=== PATIENT | male | born 1940 | race Caucasian/White ===

== ENCOUNTER 2018-02-10 08:48 | Day surgery (SDC) | payer MEDICARE, BC ==
[2018-02-09 10:45] LABS: BASOPHILS % (AUTO) 0.6 % (0-1); EOSINOPHILS # (AUTO) 0.1 X10'3 (0-0.9); EOSINOPHILS % (AUTO) 1.8 % (0-6); LYMPHOCYTES % (AUTO) 20.4 % (21-51); MEAN CORPUSCULAR HEMOGLOBIN 32.1 PG (27.0-31.0); MEAN CORPUSCULAR HGB CONC 34.9 % (33.0-36.5); MEAN CORPUSCULAR VOLUME 91.9 FL (78-98); MEAN PLATELET VOLUME 7.3 FL (7.4-10.4); MONOCYTES # (AUTO) 0.6 X10'3 (0-0.9); MONOCYTES % (AUTO) 12.6 % (2-12); NEUTROPHILS # (AUTO) 3.3 X10'3 (1.8-7.7); NEUTROPHILS % (AUTO) 64.6 % (42-75); PRE OP HEMOGLOBIN 14.3 g/dL (14.0-17.9); PRE OP PLATELET COUNT 215 X10'3 (140-440); RED BLOOD COUNT 4.46 X10'6 (4.70-6.10); RED CELL DISTRIBUTION WIDTH 13.4 % (11.5-14.5)
[2018-02-09 11:01] LABS: ALBUMIN 3.8 G/DL (3.4-5.0); ALBUMIN/GLOBULIN RATIO 1.3 (1.1-1.5); ALKALINE PHOSPHATASE 60 IU/L (46-116); BLOOD UREA NITROGEN 18 MG/DL (7-18); CALCIUM 9.4 MG/DL (8.5-10.1); CHLORIDE 102 MMOL/L (99-107); CREATININE 1.29 MG/DL (0.60-1.10); PRE OP ALT 39 U/L (30-65); PRE OP ANION GAP 11 (8-16); PRE OP AST 16 U/L (10-37); PRE OP BILIRUB, TOTAL 0.4 MG/DL (0.0-1.0); PRE OP GLUCOSE 132 MG/DL (70-104); PRE OP PARTIAL THROMB. TIME 26 SECONDS (22-35); PRE OP SODIUM 138 MMOL/L (135-145); TOTAL CARBON DIOXIDE 25.1 MMOL/L (24-32); TOTAL PROTEIN 6.7 G/DL (6.4-8.2); eGFR 54 ML/MIN
[2018-02-10] VITALS (9 sets, daily range): BP systolic 131–160; BP diastolic 62–91
[~2018-02-10] VITALS: Ht 182.9 cm; Wt 97.3 kg
[~2018-02-10 08:48] MED LIST: AMLO1TAB53 PO; ASCO500C15 PO; CHOL2000 PO; CYAN-19 PO; DICY10CA88 PO; FOLI1TAB16 PO; PANT-47 PO; UBID400C6 PO; VITAMIN B6 PO; cefazolin/dext.iso 2gm/100 ML IV ONE; famotidine 20mg tablet PO ONE; ringers solution, lacted 1,000 ML IV SCH
[2018-02-10] MEDS ORDERED: LIDOcaine 1% (10mg/ml) 2ml vial ONE (09:16)
[2018-02-10] MEDS ORDERED: BUPIVAcaine/PF 2.5mg/ml (0.25%) 10ml vial ONE (11:26)
[2018-02-10] MEDS ORDERED: LIDOcaine 0.5% (5mg/ml) 50ml vial ONE (11:29)
[2018-02-10] MEDS ORDERED: sevoflurane 250ml liquid IH ONE (11:41)
[2018-02-10] MEDS ORDERED: midazolam 2 mg/2 ml injection ONE ×2 (11:43→12:00)
[2018-02-10] MEDS ORDERED: fentaNYL/PF 50MCG/1 ML 2ML syringe ONE ×2 (11:43→12:00)
[2018-02-10] MEDS ORDERED: hydrALAZINE 20mg/ml inj. IV ONE (11:47)
[2018-02-10] MEDS ORDERED: ondansetron/PF 4mg/2ml inj ONE ×2 (12:17→12:25)
[2018-02-10] MEDS ORDERED: ringers solution, lacted 1,000 ML IV SCH (12:26)
[2018-02-10] MEDS ORDERED: morphine 4 MG/ML inj SYRINge IV PRN (12:30)
[2018-02-10] MEDS ORDERED: ondansetron/PF 4mg/2ml inj IV PRN (12:30)
== END 2018-02-10 13:20 | disposition home or self-care (01) ==
LOC: PAS 08:48
PROVIDERS: ATTEND Orthopaedic Surgery Hand Surgery
DX: M65.332 Trigger finger, left middle finger (principal); I10 Essential (primary) hypertension; K21.9 Gastro-esophageal reflux disease without esophagitis; N40.0 Benign prostatic hyperplasia without lower urinary tract symptoms; Z79.2 Long term (current) use of antibiotics; Z79.01 Long term (current) use of anticoagulants; Z87.891 Personal history of nicotine dependence; Z72.89 Other problems related to lifestyle; Z85.820 Personal history of malignant melanoma of skin; Z98.890 Other specified postprocedural states; Z79.899 Other long term (current) drug therapy; Z82.49 Family history of ischemic heart disease and other diseases of the circulatory system
CPT/HCPCS: 26055; 36415; 80053; 85025; 85610; 85730; 93005; A6222; A6449; J0360; J0690; J2001; J2250; J2405; J3010; J3490; J7120

== ENCOUNTER 2020-10-31 13:17 | Emergency (ER) | payer MEDICARE, BC ==
[~2020-10-31] VITALS: Ht 182.9 cm; Wt 88.2 kg
[~2020-10-31 13:17] MED LIST changes: +AMLO-363 PO; -AMLO1TAB53 PO; -ASCO500C15 PO; +ASCO500C18 PO; -CYAN-19 PO; +CYAN-51 PO; -cefazolin/dext.iso 2gm/100 ML IV ONE; -famotidine 20mg tablet PO ONE; -ringers solution, lacted 1,000 ML IV SCH
[2020-10-31 13:55] LABS: BASOPHILS # (AUTO) 0.1 X10'3 (0-0.2); BASOPHILS % (AUTO) 0.8 % (0-1); EOSINOPHILS # (AUTO) 0.1 X10'3 (0-0.9); EOSINOPHILS % (AUTO) 0.8 % (0-6); HEMOGLOBIN 14.2 g/dl (14.0-17.9); MEAN CORPUSCULAR HEMOGLOBIN 32.3 PG (27.0-31.0); MEAN CORPUSCULAR HGB CONC 35.4 g/dL (33.0-36.5); MEAN CORPUSCULAR VOLUME 91.2 FL (78-98); MEAN PLATELET VOLUME 7.8 FL (7.4-10.4); MONOCYTES # (AUTO) 0.6 X10'3 (0-0.9); MONOCYTES % (AUTO) 9.6 % (2-12); NEUTROPHILS # (AUTO) 4.7 X10'3 (1.8-7.7); NEUTROPHILS % (AUTO) 73.8 % (42-75); PLATELET COUNT 206 X10'3 (140-440); RED BLOOD COUNT 4.39 X10'6 (4.70-6.10); RED CELL DISTRIBUTION WIDTH 13.4 % (11.5-14.5); WHITE BLOOD COUNT 6.4 X10'3 (4.5-11.0)
[2020-10-31 14:11] LABS: ALANINE AMINOTRANSFERASE 32 U/L (12-78); ALBUMIN 4.2 G/DL (3.4-5.0); ALBUMIN/GLOBULIN RATIO 1.4 (1.1-1.5); ALKALINE PHOSPHATASE 95 IU/L (46-116); ANION GAP 12 (8-16); ASPARTATE AMINO TRANSFERASE 14 U/L (10-37); BILIRUBIN,TOTAL 0.5 MG/DL (0.1-1.0); BLOOD UREA NITROGEN 21 MG/DL (7-18); BUN/CREATININE RATIO 13.4 (5.4-32.0); CALCIUM 9.9 MG/DL (8.5-10.1); CHLORIDE 92 MMOL/L (99-107); CREATININE 1.57 MG/DL (0.60-1.10); POTASSIUM 4.1 MMOL/L (3.5-5.1); SODIUM 131 MMOL/L (135-145); TOTAL CARBON DIOXIDE 26.9 MMOL/L (24-32); TOTAL PROTEIN 7.2 G/DL (6.4-8.2); eGFR 43 ML/MIN
[2020-10-31 14:16] LABS: GLUCOSE 498 MG/DL (70-104)
[2020-10-31] MEDS ORDERED: normal saline 1000ML IV soln IVB ONE ×2 (14:25→16:00)
[2020-10-31] MEDS ORDERED: insulin regular, human 10 units/0.1 ml syringe IV ONE (15:50)
[2020-10-31 16:10] LABS: CLARITY,URINE CLEAR (Clear); COLOR,URINE YELLOW (Yellow); GLUCOSE, URINE >=1000 mg/dl (Neg); KETONES,URINE 15 mg/dl (Neg); LEUKOCYTE ESTERASE ,URINE NEGATIVE (Neg); NITRITES, URINE NEGATIVE (Neg); OCCULT BLOOD,URINE NEGATIVE (Neg); PROTEIN,URINE NEGATIVE (Neg); UROBILINOGEN,URINE 0.2 E.U/dL (0.2-1.0)
[2020-10-31 16:14] LABS: UA COLLECTION TYPE CLN CATCH MIDSTREAM
[2020-10-31 16:15] LABS: BACTERIA,URINE NONE SEEN /HPF (Neg); MUCUS STRANDS NONE SEEN /LPF (Neg); RBC,URINE 0-2 /HPF (0-2); SQUAMOUS EPITHELIAL CELL,UR NONE SEEN /LPF (FEW); WBC,URINE NONE SEEN /HPF (0-4)
[2020-10-31] MEDS ORDERED: AMLO10TA13 PO (17:07)
[2020-10-31] MEDS ORDERED: PYRI100T10 PO (17:07)
[2020-10-31] MEDS ORDERED: HYDR25TA4 PO (17:07)
[2020-10-31] MEDS ORDERED: VALS320T17 PO (17:07)
[2020-10-31] MEDS ORDERED: METF500T PO (17:48)
[2020-10-31 17:59] VITALS: BP 195/95
--- NOTE | 2020-10-31 17:59 | NUR ---
Per MD Jean, pt ok to discharge without finishing IV fluids.
== END 2020-10-31 18:22 | disposition home or self-care (01) ==
LOC: ER 13:17
DX: E11.65 Type 2 diabetes mellitus with hyperglycemia (principal); I10 Essential (primary) hypertension; R53.83 Other fatigue; R53.1 Weakness; Z72.89 Other problems related to lifestyle; Z79.899 Other long term (current) drug therapy
CPT/HCPCS: 36415; 80053; 81001; 82948; 85025; 96374; 99283; J7030

== ENCOUNTER → 2021-02-27 | Outpatient (CLI) | payer MEDICARE, BC ==
[~2021-02-27] MED LIST changes: -AMLO-363 PO; +AMLO10TA PO; +ASPI-611 PO; +ASPI81TA52 PO; +DAPA5TAB PO; -FOLI1TAB16 PO; +HYDR25TA4 PO; +IODIXANOL 320 MG/ML INFUS..BTL 100ML IV ONE; +IODIXANOL 320 MG/ML INFUS..BTL 50ML IV ONE; +METF-1203 PO; +METF-900 PO; +PYRI100T10 PO; +ROSU5TAB PO; +TICA90TA PO; +TICA90TA2 PO; -UBID400C6 PO; +VALS160T2 PO; -VITAMIN B6 PO
[2021-02-27 11:32] LABS: BASOPHILS # (AUTO) 0.1 X10'3 (0-0.2); BASOPHILS % (AUTO) 0.8 % (0-1); EOSINOPHILS # (AUTO) 0.1 X10'3 (0-0.9); EOSINOPHILS % (AUTO) 0.9 % (0-6); HEMATOCRIT 37.1 % (42.0-52.0); HEMOGLOBIN 12.7 g/dl (14.0-17.9); LYMPHOCYTES # (AUTO) 0.9 X10'3 (1.1-4.8); LYMPHOCYTES % (AUTO) 13.4 % (21-51); MEAN CORPUSCULAR HEMOGLOBIN 31.2 PG (27.0-31.0); MEAN CORPUSCULAR HGB CONC 34.2 g/dL (33.0-36.5); MEAN CORPUSCULAR VOLUME 91.1 FL (78-98); MEAN PLATELET VOLUME 6.7 FL (7.4-10.4); MONOCYTES # (AUTO) 0.7 X10'3 (0-0.9); MONOCYTES % (AUTO) 9.9 % (2-12); PLATELET COUNT 417 X10'3 (140-440); RED BLOOD COUNT 4.07 X10'6 (4.70-6.10); RED CELL DISTRIBUTION WIDTH 13.9 % (11.5-14.5); WHITE BLOOD COUNT 6.7 X10'3 (4.5-11.0)
[2021-02-27 12:00] LABS: PARTIAL THROMBOPLASTIN TIME 27 SECONDS (22-32)
[2021-02-27 12:14] LABS: ALANINE AMINOTRANSFERASE 43 U/L (12-78); ALBUMIN 3.9 G/DL (3.4-5.0); ALBUMIN/GLOBULIN RATIO 1.1 (1.1-1.5); ALKALINE PHOSPHATASE 70 IU/L (46-116); ANION GAP 9 (8-16); ASPARTATE AMINO TRANSFERASE 14 U/L (10-37); BILIRUBIN,TOTAL 0.5 MG/DL (0.1-1.0); BLOOD UREA NITROGEN 23 MG/DL (7-18); BUN/CREATININE RATIO 18.4 (5.4-32.0); CALCIUM 9.7 MG/DL (8.5-10.1); CHLORIDE 103 MMOL/L (99-107); CREATININE 1.25 MG/DL (0.60-1.10); GLUCOSE 131 MG/DL (70-104); SODIUM 138 MMOL/L (135-145); TOTAL CARBON DIOXIDE 26.3 MMOL/L (24-32); TOTAL PROTEIN 7.4 G/DL (6.4-8.2); eGFR 56 ML/MIN
== END | disposition home or self-care (01) ==
LOC: RAD 10:25
PROVIDERS: ATTEND Internal Medicine Cardiovascular Disease
DX: K57.30 Diverticulosis of large intestine without perforation or abscess without bleeding (principal); M43.16 Spondylolisthesis, lumbar region; M51.37 Other intervertebral disc degeneration, lumbosacral region; N20.0 Calculus of kidney; N28.1 Cyst of kidney, acquired; K76.89 Other specified diseases of liver; I70.0 Atherosclerosis of aorta; I70.1 Atherosclerosis of renal artery; I25.10 Atherosclerotic heart disease of native coronary artery without angina pectoris; I70.8 Atherosclerosis of other arteries; K55.1 Chronic vascular disorders of intestine; M47.815 Spondylosis without myelopathy or radiculopathy, thoracolumbar region; M85.88 Other specified disorders of bone density and structure, other site; Z20.822 Contact with and (suspected) exposure to COVID-19
CPT/HCPCS: 36415; 71046; 71275; 74174; 80053; 85025; 85610; 85730; 94010; 94727; 94729; Q9967; U0003

== ENCOUNTER 2021-04-02 08:30 | Inpatient (IN) | payer MEDICARE, BC ==
[2021-03-27 15:43] LABS: CLARITY,URINE CLEAR (Clear); COLOR,URINE YELLOW (Yellow); UA COLLECTION TYPE CLN CATCH MIDSTREAM
[2021-03-27 15:44] LABS: GLUCOSE, URINE >=1000 mg/dl (Neg); KETONES,URINE NEGATIVE (Neg); LEUKOCYTE ESTERASE ,URINE NEGATIVE (Neg); NITRITES, URINE NEGATIVE (Neg); OCCULT BLOOD,URINE NEGATIVE (Neg); PROTEIN,URINE NEGATIVE (Neg); UROBILINOGEN,URINE 0.2 E.U/dL (0.2-1.0)
[2021-03-27 15:47] LABS: BASOPHILS # (AUTO) 0.1 X10'3 (0-0.2); BASOPHILS % (AUTO) 0.9 % (0-1); EOSINOPHILS # (AUTO) 0.1 X10'3 (0-0.9); EOSINOPHILS % (AUTO) 1.6 % (0-6); LYMPHOCYTES # (AUTO) 0.8 X10'3 (1.1-4.8); LYMPHOCYTES % (AUTO) 13.1 % (21-51); MEAN CORPUSCULAR HEMOGLOBIN 30.4 PG (27.0-31.0); MEAN CORPUSCULAR VOLUME 89.4 FL (78-98); MEAN PLATELET VOLUME 7.1 FL (7.4-10.4); MONOCYTES # (AUTO) 0.6 X10'3 (0-0.9); MONOCYTES % (AUTO) 10.3 % (2-12); NEUTROPHILS # (AUTO) 4.6 X10'3 (1.8-7.7); NEUTROPHILS % (AUTO) 74.1 % (42-75); PRE OP HEMATOCRIT 37.8 % (42.0-52.0); PRE OP HEMOGLOBIN 12.9 g/dL (14.0-17.9); PRE OP PLATELET COUNT 248 X10'3 (140-440); RED BLOOD COUNT 4.23 X10'6 (4.70-6.10); RED CELL DISTRIBUTION WIDTH 14.1 % (11.5-14.5)
[2021-03-27 15:52] LABS: BACTERIA,URINE NONE SEEN /HPF (Neg); MUCUS STRANDS NONE SEEN /LPF (Neg); RBC,URINE 0-2 /HPF (0-2); SQUAMOUS EPITHELIAL CELL,UR NONE SEEN /LPF (FEW); WBC,URINE NONE SEEN /HPF (0-4)
[2021-03-27 15:55] LABS: PRE OP PROTIME 10.3 SECONDS (9.0-12.0)
[2021-03-27 15:57] LABS: ALBUMIN/GLOBULIN RATIO 1.3 (1.1-1.5); ALKALINE PHOSPHATASE 64 IU/L (46-116); BLOOD UREA NITROGEN 20 MG/DL (7-18); BUN/CREATININE RATIO 16.9 (5.4-32.0); CALCIUM 8.9 MG/DL (8.5-10.1); CHLORIDE 101 MMOL/L (99-107); CREATININE 1.18 MG/DL (0.60-1.10); PRE OP ALT 40 U/L (30-65); PRE OP ANION GAP 8 (8-16); PRE OP AST 16 U/L (10-37); PRE OP BILIRUB, TOTAL 0.3 MG/DL (0.0-1.0); PRE OP GLUCOSE 119 MG/DL (70-104); PRE OP POTASSIUM 3.7 MMOL/L (3.4-5.1); PRE OP SODIUM 136 MMOL/L (135-145); TOTAL CARBON DIOXIDE 27.3 MMOL/L (24-32); TOTAL PROTEIN 7.1 G/DL (6.4-8.2); eGFR 60 ML/MIN
[2021-03-27 16:01] LABS: HEMOGLOBIN A1C 5.6 % (4.5-6.2)
[~2021-04-02] VITALS: Ht 177.8 cm; Wt 85.0 kg
[~2021-04-02 08:30] MED LIST changes: -ASPI-611 PO; -ASPI81TA52 PO; -IODIXANOL 320 MG/ML INFUS..BTL 100ML IV ONE; -IODIXANOL 320 MG/ML INFUS..BTL 50ML IV ONE; -METF-1203 PO; -TICA90TA PO; -TICA90TA2 PO
[2021-04-13 12:17] LABS: BASOPHILS % (AUTO) 0.6 % (0-1); EOSINOPHILS # (AUTO) 0.1 X10'3 (0-0.9); EOSINOPHILS % (AUTO) 1.3 % (0-6); LYMPHOCYTES # (AUTO) 0.9 X10'3 (1.1-4.8); LYMPHOCYTES % (AUTO) 13.5 % (21-51); MEAN CORPUSCULAR HEMOGLOBIN 30.5 PG (27.0-31.0); MEAN CORPUSCULAR VOLUME 89.8 FL (78-98); MEAN PLATELET VOLUME 7.3 FL (7.4-10.4); MONOCYTES # (AUTO) 0.6 X10'3 (0-0.9); MONOCYTES % (AUTO) 8.8 % (2-12); NEUTROPHILS # (AUTO) 5.3 X10'3 (1.8-7.7); NEUTROPHILS % (AUTO) 75.8 % (42-75); PRE OP HEMATOCRIT 41.4 % (42.0-52.0); PRE OP HEMOGLOBIN 14.1 g/dL (14.0-17.9); PRE OP PLATELET COUNT 255 X10'3 (140-440); RED BLOOD COUNT 4.61 X10'6 (4.70-6.10); RED CELL DISTRIBUTION WIDTH 14.4 % (11.5-14.5)
[2021-04-13 12:26] LABS: PRE OP PROTIME 10.1 SECONDS (9.0-12.0)
[2021-04-13 12:30] LABS: ALBUMIN 4.3 G/DL (3.4-5.0); ALBUMIN/GLOBULIN RATIO 1.2 (1.1-1.5); ALKALINE PHOSPHATASE 65 IU/L (46-116); BLOOD UREA NITROGEN 18 MG/DL (7-18); BUN/CREATININE RATIO 14.4 (5.4-32.0); CALCIUM 9.7 MG/DL (8.5-10.1); CHLORIDE 99 MMOL/L (99-107); CREATININE 1.25 MG/DL (0.60-1.10); PRE OP ALT 38 U/L (30-65); PRE OP ANION GAP 12 (8-16); PRE OP AST 16 U/L (10-37); PRE OP BILIRUB, TOTAL 0.4 MG/DL (0.0-1.0); PRE OP GLUCOSE 114 MG/DL (70-104); PRE OP SODIUM 135 MMOL/L (135-145); TOTAL CARBON DIOXIDE 24.3 MMOL/L (24-32); TOTAL PROTEIN 7.9 G/DL (6.4-8.2); eGFR 56 ML/MIN
[2021-04-13 12:33] LABS: CLARITY,URINE CLEAR (Clear); COLOR,URINE YELLOW (Yellow); GLUCOSE, URINE >=1000 mg/dl (Neg); KETONES,URINE NEGATIVE (Neg); LEUKOCYTE ESTERASE ,URINE NEGATIVE (Neg); NITRITES, URINE NEGATIVE (Neg); OCCULT BLOOD,URINE NEGATIVE (Neg); PH,URINE 7.5 (4.8-8.0); PROTEIN,URINE NEGATIVE (Neg); UROBILINOGEN,URINE 0.2 E.U/dL (0.2-1.0)
[2021-04-13 12:44] LABS: UA COLLECTION TYPE CLN CATCH MIDSTREAM
[2021-04-13 12:46] LABS: BACTERIA,URINE NONE SEEN /HPF (Neg); RBC,URINE NONE SEEN /HPF (0-2); SQUAMOUS EPITHELIAL CELL,UR NONE SEEN /LPF (FEW); WBC,URINE NONE SEEN /HPF (0-4)
[2021-04-15] MEDS ORDERED: TICA90TA2 PO (11:35)
[2021-04-16] VITALS (22 sets, daily range): BP systolic 130–168; BP diastolic 53–81
[2021-04-16] MEDS ORDERED: ringers solution, lacted 1,000 ML IV SCH ×2 (05:00→08:00)
[2021-04-16] MEDS ORDERED: ondansetron/PF 4mg/2ml inj IV PRN ×3 (05:30→11:00)
[2021-04-16] MEDS ORDERED: cefazolin/dext.iso 2gm/50ml IV ONE (05:30)
[2021-04-16] MEDS ORDERED: nitroPRUSSIDE (NIPRIDE) (200MCG/ML) 100ML Drip IV SCH (05:30)
[2021-04-16] MEDS ORDERED: aspirin 325mg tablet PO ONE (05:30)
[2021-04-16] MEDS ORDERED: phenylephrine inj 50 MG in normal saline 250ml IV soln 245 ML IV SCH (05:30)
[2021-04-16] MEDS ORDERED: famotidine 20mg tablet PO ONE (05:30)
[2021-04-16] MEDS ORDERED: vancomycin 1,500 MG in NS 300ml IV soln IV ONE (05:30)
[2021-04-16] MEDS ORDERED: methylPREDNISolone sod succ 125mg/2ml vial ONE (06:42)
--- NOTE | 2021-04-16 07:30 | NUR ---
DR ROBERTSON NOTIFIED PT TOOK ASPIRIN 81 MG THIS AM AT HOME, PER MD MARTINEZ TO GIVE ASPIRIN 325 PRE-OP ORDERED.
[2021-04-16] MEDS ORDERED: morphine 4 MG/ML inj SYRINge IV PRN (08:00)
[2021-04-16] MEDS ORDERED: morphine 2 MG/ML inj. syringe IV PRN (08:00)
[2021-04-16] MEDS ORDERED: proCHLORperazine 10 MG/2 ml inj IV PRN ×2 (08:00→11:00)
[2021-04-16] MEDS ORDERED: meperidine/PF 25mg/ml syringe IV PRN ×3 (08:00)
[2021-04-16] MEDS ORDERED: iohexol 350 MG/ML 50ML vial IV ONE (09:03)
[2021-04-16] MEDS ORDERED: LIDOcaine 1% (10mg/ml)w/preservative injection 20ml MDV ONE (09:03)
[2021-04-16] MEDS ORDERED: iohexol 350MG/ML 100ml bottle IV ONE (09:03)
[2021-04-16] MEDS ORDERED: heparin 1,000 UNITS/NS 500ml 500 ML ONE ×2 (09:04)
[2021-04-16] MEDS ORDERED: LIDOCAINE 1%/EPI 1:100,000 inj. 10 ML multi-dose vial ONE (09:14)
[2021-04-16] MEDS ORDERED: sevoflurane 250ml liquid IH ONE (09:14)
[2021-04-16] MEDS ORDERED: fentaNYL/PF 50MCG/1 ML 2ML syringe ONE (09:15)
[2021-04-16] MEDS ORDERED: midazolam 1 mg/ML 2ml injection ONE ×2 (09:16→09:21)
[2021-04-16] MEDS ORDERED: dicyclomine 10 MG capsule PO PRN (09:25)
[2021-04-16] MEDS ORDERED: METF-1203 PO (09:27)
[2021-04-16] MEDS ORDERED: ASPI81TA52 PO (09:40)
[2021-04-16] MEDS ORDERED: protamine sulf. 10mg/ml inj. IV ONE (09:52)
[2021-04-16] MEDS ORDERED: dexamethasone sod phosphate 4mg/ml inj. ONE (09:54)
[2021-04-16] MEDS ORDERED: rocuronium 10mg/ml inj IV ONE (09:54)
[2021-04-16] MEDS ORDERED: heparin 1,000unit/ml 10ml vial 10 ML ONE ×2 (09:54)
[2021-04-16] MEDS ORDERED: propofol inj 20 ML IV ONE ×2 (09:54)
[2021-04-16] MEDS ORDERED: ondansetron/PF 4mg/2ml inj ONE (10:36)
[2021-04-16] MEDS ORDERED: sugammadex 200mg/2ml injection IV ONE (10:46)
[2021-04-16] MEDS ORDERED: ALPRAZolam 0.25mg tablet PO PRN (11:00)
[2021-04-16] MEDS ORDERED: dextrose ORAL solution 15 GM/59 ML bottle PO PRN ×2 (11:00)
[2021-04-16] MEDS ORDERED: dextrose 50%-water 50ml dispensing syringe IV PRN ×2 (11:00)
[2021-04-16] MEDS ORDERED: acetaminophen 325mg tablet PO PRN (11:00)
[2021-04-16] MEDS ORDERED: potassium CL 10mEq/100ml bag 100 ML IV PRN (11:00)
[2021-04-16] MEDS ORDERED: glucagon, human recombinant 1mg kit SUBCUT PRN (11:00)
[2021-04-16] MEDS ORDERED: potassium Cl 40MEQ/1/2NS 520ml 520 ML IV PRN (11:00)
[2021-04-16] MEDS ORDERED: docusate sod 100mg capsule PO PRN (11:00)
[2021-04-16] MEDS ORDERED: hydrALAZINE 20mg/ml inj. IV PRN (11:00)
[2021-04-16] MEDS ORDERED: insulin Lispro (HumaLOG) vial - multi-dose SQ SCH (11:00)
[2021-04-16] MEDS ORDERED: labetalol 20mg/4ml (5mg/ml) syringe IV PRN (11:00)
[2021-04-16] MEDS ORDERED: MESSAGE TO PHARMACY PO ONE (11:00)
[2021-04-16] MEDS ORDERED: diphenhydrAMINE 25mg capsule PO PRN (11:00)
[2021-04-16] MEDS ORDERED: magnesium 4gm in 100ml NS 100 ML IV PRN (11:00)
[2021-04-16] MEDS ORDERED: magnesium 2GM in 50ml NS 50 ML IV PRN (11:00)
[2021-04-16] MEDS ORDERED: insulin regular, human U-100 3ml vial - multi-dose SQ SCH (11:00)
[2021-04-16] MEDS ORDERED: potassium Cl 20 mEq SR tablet PO PRN (11:00)
--- NOTE | 2021-04-16 11:04 | NUR ---
Received from OR via , accompanied by Anesthesiologist DR LÓPEZ and report given by Anesthesiolgist. AWAKENS TO VOICE. VITALS STABLE. DRESSINGS DI. KIMMIE PAIN. DOPPLER QUALITY PULSES TO BILAT FEET.
--- NOTE | 2021-04-16 11:44 | NUR ---
BILAT GROIN SITES WITHOUT BLEEDING. SOFT TO PALPATION. FEET REMAIN WITH DOPPLER PULSES.
--- NOTE | 2021-04-16 12:04 | NUR ---
Report called to receiving nurse. Transferred via BED Belongings . Special Issues communicated to receiving nurse.AWAKE AND ORIENTED. VITALS STABLE. DRESSINGS DI. KIMMIE PAIN. TO [place] RM 307B AT THIS TIME.
--- NOTE | 2021-04-16 12:15 | NUR ---
Patient in room MED 307. I have received report from Ted JACKSON PACU and had the opportunity to ask questions and assume patient care.
--- NOTE | 2021-04-16 12:30 | NUR ---
Pt received from PACU aaox4, no distress noted. BLLE palpable with doppler. BL groin with drainage and marked at time of admission with Ted and will continue to monitor. Site without hematoma, redness or swelling. Pt was strongly encouraged to keep straight until 1700. call light in reached. will continue to monitor
[2021-04-16] MEDS: normal saline 1000ml 1,000 ML IV SCH ×2 (13:33→21:00)
[2021-04-16] MEDS: HYDROcodone/acetaminophen 5mg/325mg tablet PO PRN (13:52)
[2021-04-16] MEDS: ceFAZolin 1GM/D5W- ADD-VANTAGE 50 ML IV SCH ×2 (16:31→23:27)
[2021-04-16] MEDS: sod chloride 0.9% 10ml flush syringe IV SCH ×2 (16:32→23:29)
--- NOTE | 2021-04-16 17:00 | NUR ---
Pt is off bedrest, tolerated sitting at bedside and dangling legs well. right side Addendum: 04/16/21 at 1819 by Norma Taylor RN with marked area of serosang. drainage however contained in the tegaderm dsg lt side sat with martin jacob and contained in Md anthony was in stated to continue monitor, pulses palpable with doppler, sites with no hematoma, redness or soreness. Report given to Valerie
--- NOTE | 2021-04-16 18:00 | NUR ---
Patient in room MED 307. I have received report from Norma JACKSON and had the opportunity to ask questions and assume patient care.
--- NOTE | 2021-04-16 18:09 | NUR ---
Problems reprioritized. Patient report given, questions answered & plan of care reviewed with Valerie JACKSON [].
[2021-04-16] MEDS: ticagrelor 90mg tablet PO SCH (20:09)
[2021-04-16] MEDS: vancomycin/NS 1 GM ADD-VANTAGE 250 ML IV SCH (20:09)
[2021-04-16] MEDS ORDERED: atorvastatin 20mg tablet PO SCH (21:00)
[2021-04-16] MEDS ORDERED: insulin glargine (Lantus) pen - multi-dose SQ SCH (21:00)
[2021-04-17] MEDS: HYDROcodone/acetaminophen 5mg/325mg tablet PO PRN (01:44)
[2021-04-17 02:00] VITALS: BP 133/64
[2021-04-17 06:00] VITALS: BP 144/71
[2021-04-17 06:00] LABS: BASOPHILS # (AUTO) 0.1 X10'3 (0-0.2); BASOPHILS % (AUTO) 0.6 % (0-1); EOSINOPHILS % (AUTO) 0.2 % (0-6); HEMATOCRIT 37.3 % (42.0-52.0); HEMOGLOBIN 12.6 g/dl (14.0-17.9); LYMPHOCYTES # (AUTO) 0.9 X10'3 (1.1-4.8); LYMPHOCYTES % (AUTO) 7.5 % (21-51); MEAN CORPUSCULAR HEMOGLOBIN 30.4 PG (27.0-31.0); MEAN CORPUSCULAR HGB CONC 33.8 g/dL (33.0-36.5); MEAN CORPUSCULAR VOLUME 89.8 FL (78-98); MEAN PLATELET VOLUME 7.5 FL (7.4-10.4); MONOCYTES # (AUTO) 1.1 X10'3 (0-0.9); MONOCYTES % (AUTO) 9.2 % (2-12); NEUTROPHILS # (AUTO) 9.8 X10'3 (1.8-7.7); NEUTROPHILS % (AUTO) 82.5 % (42-75); PLATELET COUNT 229 X10'3 (140-440); RED BLOOD COUNT 4.16 X10'6 (4.70-6.10); RED CELL DISTRIBUTION WIDTH 14.7 % (11.5-14.5); WHITE BLOOD COUNT 11.9 X10'3 (4.5-11.0)
[2021-04-17 06:27] LABS: ALANINE AMINOTRANSFERASE 26 U/L (12-78); ALBUMIN 3.5 G/DL (3.4-5.0); ALBUMIN/GLOBULIN RATIO 1.1 (1.1-1.5); ALKALINE PHOSPHATASE 49 IU/L (46-116); ANION GAP 10 (8-16); ASPARTATE AMINO TRANSFERASE 18 U/L (10-37); BILIRUBIN,TOTAL 0.4 MG/DL (0.1-1.0); BLOOD UREA NITROGEN 20 MG/DL (7-18); BUN/CREATININE RATIO 16.8 (5.4-32.0); CHLORIDE 105 MMOL/L (99-107); CREATININE 1.19 MG/DL (0.60-1.10); GLUCOSE 128 MG/DL (70-104); MAGNESIUM 2.3 MG/DL (1.5-2.4); POTASSIUM 3.6 MMOL/L (3.5-5.1); SODIUM 137 MMOL/L (135-145); TOTAL CARBON DIOXIDE 22.2 MMOL/L (24-32); TOTAL PROTEIN 6.8 G/DL (6.4-8.2); eGFR 59 ML/MIN
--- NOTE | 2021-04-17 06:34 | NUR ---
Problems reprioritized. Patient report given, questions answered & plan of care reviewed with SURJIT JACKSON.
[2021-04-17] MEDS: ceFAZolin 1GM/D5W- ADD-VANTAGE 50 ML IV SCH (07:24)
[2021-04-17] MEDS: sod chloride 0.9% 10ml flush syringe IV SCH (07:24)
[2021-04-17] MEDS: ticagrelor 90mg tablet PO SCH (07:28)
[2021-04-17] MEDS ORDERED: pyridoxine 50mg tablet PO SCH (08:00)
[2021-04-17] MEDS ORDERED: aspirin 81mg, enteric-coated 1 TAB TABLET.DR PO SCH (08:00)
[2021-04-17] MEDS ORDERED: losartan 50mg tablet PO SCH (08:00)
[2021-04-17] MEDS ORDERED: ascorbic acid 500mg tablet PO SCH (08:00)
[2021-04-17] MEDS ORDERED: HYDROchlorothiazide 12.5mg capsule PO SCH (08:00)
[2021-04-17] MEDS ORDERED: cyanocobalamin 500mcg tablet PO SCH (08:00)
[2021-04-17] MEDS ORDERED: pantoprazole 40mg Tablet.DR PO SCH (08:00)
[2021-04-17] MEDS ORDERED: amLODIPine 5mg tablet PO SCH (08:00)
[2021-04-17] MEDS ORDERED: cholecalciferol (vitamin D3) 1,000 unit (25mcg) tablet PO SCH (08:00)
[2021-04-17] MEDS: vancomycin/NS 1 GM ADD-VANTAGE 250 ML IV SCH (09:27)
[2021-04-17 10:00] VITALS: BP 157/60
--- NOTE | 2021-04-17 15:18 | NUR ---
Explained all discharge and medication instructions to pt. Pt verbalized understanding. Piv d/c'd, tip intact. Pt wheeled out with by Dunia JACKSON
== END 2021-04-17 14:00 | disposition home or self-care (01) | DRG 267 ==
LOC: PAS IN 04-16 06:00 → EDSTATUS 04-16 08:45 → MED 3N 04-16 12:30
PROVIDERS: ADMIT Internal Medicine Cardiovascular Disease; ATTEND Internal Medicine Cardiovascular Disease
PROC: B41D1ZZ Fluoroscopy of Aorta and Bilateral Lower Extremity Arteries using Low Osmolar Contrast (ICD-10-PCS; 2021-04-16)
PROC: 5A1223Z Performance of Cardiac Pacing, Continuous (ICD-10-PCS; 2021-04-16)
PROC: 02RF38Z Replacement of Aortic Valve with Zooplastic Tissue, Percutaneous Approach (ICD-10-PCS; principal; 2021-04-16 09:14)
DX: I08.0 Rheumatic disorders of both mitral and aortic valves (principal); Z00.6 Encounter for examination for normal comparison and control in clinical research program; E11.9 Type 2 diabetes mellitus without complications; E78.5 Hyperlipidemia, unspecified; I25.10 Atherosclerotic heart disease of native coronary artery without angina pectoris; K21.9 Gastro-esophageal reflux disease without esophagitis; I10 Essential (primary) hypertension; Z85.820 Personal history of malignant melanoma of skin; Z95.5 Presence of coronary angioplasty implant and graft
CPT/HCPCS: 33361; 36415; 71045; 71046; 80053; 81001; 82948; 83036; 83735; 83880; 85025; 85347; 85610; 85730; 86885; 86900; 86901; 86920; 87081; 93005; 93308; 93325; 93355; A4618; A6258; A6449; C1756; C1760; C1769; C1894; G0378; J0360; J0690; J1100; J1644; J1815; J2250; J2370; J2405; J2704; J2720; J2930; J3010; J3370; J3490; J7030; J7040; J7050; J7120; Q9967; U0003; U0005

== ENCOUNTER 2024-05-29 09:42 | Day surgery (SDC) | payer MEDICARE, BC ==
[2024-05-25 13:34] LABS: BASOPHILS # (AUTO) 0.1 X10'3 (0-0.2); BASOPHILS % (AUTO) 0.7 % (0-1); EOSINOPHILS # (AUTO) 0.1 X10'3 (0-0.9); EOSINOPHILS % (AUTO) 1.1 % (0-6); HEMATOCRIT 36.5 % (42.0-52.0); HEMOGLOBIN 12.8 g/dl (14.0-17.9); LYMPHOCYTES # (AUTO) 1.3 X10'3 (1.1-4.8); MEAN CORPUSCULAR HEMOGLOBIN 31.8 PG (27.0-31.0); MEAN CORPUSCULAR HGB CONC 35.1 g/dL (33.0-36.5); MEAN CORPUSCULAR VOLUME 90.7 FL (78-98); MEAN PLATELET VOLUME 7.1 FL (7.4-10.4); MONOCYTES # (AUTO) 0.8 X10'3 (0-0.9); MONOCYTES % (AUTO) 8.8 % (2-12); NEUTROPHILS # (AUTO) 6.9 X10'3 (1.8-7.7); NEUTROPHILS % (AUTO) 75.4 % (42-75); PLATELET COUNT 283 X10'3 (140-440); RED BLOOD COUNT 4.02 X10'6 (4.70-6.10); RED CELL DISTRIBUTION WIDTH 13.3 % (11.5-14.5); WHITE BLOOD COUNT 9.1 X10'3 (4.5-11.0)
[2024-05-25 13:53] LABS: APTT 28 SECONDS (22-32); PROTHROMBIN TIME 10.5 SECONDS (9.0-12.0)
[2024-05-25 14:02] LABS: ALBUMIN 3.9 G/DL (3.4-5.0); ANION GAP 11 (8-16); BLOOD UREA NITROGEN 24 MG/DL (7-18); CALCIUM 9.3 MG/DL (8.5-10.1); CHLORIDE 99 MMOL/L (99-107); CHOL/HDL RATIO 2.7 (0.00-4.99); CHOLESTEROL 116 MG/DL (0-200); CREATININE 1.84 MG/DL (0.60-1.10); GLUCOSE 116 MG/DL (70-104); HDL CHOLESTEROL 43 MG/DL (35-60); LDL CHOLESTEROL 62 MG/DL (50-100); SODIUM 134 MMOL/L (135-145); TOTAL CARBON DIOXIDE 24.1 MMOL/L (24-32); TRIGLYCERIDES 115 MG/DL (20-135); eGFR 35 ML/MIN
[2024-05-29] VITALS (13 sets, daily range): BP systolic 148–179; BP diastolic 67–115; PULSE 60–68; RESP 13–21; TEMP 98.3; O2SAT 95–100
[~2024-05-29] VITALS: Ht 180.3 cm; Wt 84.1 kg
[~2024-05-29 09:42] MED LIST changes: +ASPI81TA52 PO; +CYAN-104 PO; -CYAN-51 PO; +METF-1203 PO; -METF-900 PO; +TICA90TA2 PO
[2024-05-29] MEDS ORDERED: CARV6.2553 PO (10:23)
[2024-05-29] MEDS ORDERED: ROSU20TA98 PO (10:23)
[2024-05-29] MEDS ORDERED: verapamil 2.5 mg/ml inj IV ONE (12:24)
[2024-05-29] MEDS ORDERED: fentaNYL/PF 50MCG/1 ML 2ML syringe ONE (12:24)
[2024-05-29] MEDS ORDERED: iohexol 350MG/ML 100ml bottle IV ONE ×2 (12:24→13:41)
[2024-05-29] MEDS ORDERED: LIDOcaine 1% (10mg/ml) 2ml vial ONE (12:24)
[2024-05-29] MEDS ORDERED: midazolam 1 mg/ML 2ml injection ONE (12:24)
[2024-05-29] MEDS ORDERED: heparin 1,000unit/ml 10ml vial 10 ML ONE (12:24)
[2024-05-29] MEDS ORDERED: nitroGLYCERIN 500mcg/5mL D5W 5 ML IV ONE (12:25)
[2024-05-29] MEDS: diphenhydrAMINE 25mg capsule PO PRN (12:40)
[2024-05-29] MEDS: LORazepam 0.5 MG tablet PO PRN (12:40)
[2024-05-29] MEDS: normal saline 1,000 ML IV SCH (12:40)
[2024-05-29] MEDS ORDERED: iohexol 350 MG/ML 50ML vial IV ONE (13:38)
[2024-05-29] MEDS ORDERED: aspirin 325mg tablet ONE (14:32)
[2024-05-29] MEDS ORDERED: clopidogrel 300mg tablet ONE (14:32)
[2024-05-29] MEDS ORDERED: ticagrelor 90mg tablet ONE (14:55)
[2024-05-29] MEDS ORDERED: HYDROcodone/acetaminophen 5mg/325mg tablet PO PRN (15:10)
[2024-05-29] MEDS ORDERED: HYDROcodone/acetaminophen 10/325mg tab PO PRN (15:10)
[2024-05-29] MEDS ORDERED: TICA90TA2 PO (16:44)
== END 2024-05-29 20:35 | disposition home or self-care (01) ==
LOC: SSTAY O 09:42
PROVIDERS: ATTEND Student in an Organized Health Care Education/Training Program
DX: R94.39 Abnormal result of other cardiovascular function study (principal); I25.10 Atherosclerotic heart disease of native coronary artery without angina pectoris; E78.5 Hyperlipidemia, unspecified; E11.22 Type 2 diabetes mellitus with diabetic chronic kidney disease; I13.10 Hypertensive heart and chronic kidney disease without heart failure, with stage 1 through stage 4 chronic kidney disease, or unspecified chronic kidney disease; N18.9 Chronic kidney disease, unspecified; Z79.82 Long term (current) use of aspirin; Z79.84 Long term (current) use of oral hypoglycemic drugs; Z79.899 Other long term (current) drug therapy; Z98.890 Other specified postprocedural states; Z79.01 Long term (current) use of anticoagulants
CPT/HCPCS: 36415; 80048; 80061; 85025; 85610; 85730; 92920; 93005; 93454; A6258; A6402; C1725; C1751; C1769; C1894; J1644; J2003; J2250; J3010; J3490; J7030; Q0163; Q9967; Z7610; 99152; 99153; A6449